=== PATIENT | female | born 1955 | race Caucasian/White ===

== ENCOUNTER 2017-10-24 16:48 | Observation (INO) | payer OTHER ==
[2017-10-24 17:40] LABS: #Basophils 0.1 thou/uL (0.0-0.2); #Eosinphils 0.2 thou/uL (0.0-0.7); #Lymphocytes 1.3 thou/uL (1.20-3.40); #Neutrophils 7.5 thou/uL (1.40-6.50); %Basophils 0.6 % (0.0-1.0); %Eosinophils 2.3 % (0.0-10.0); %Lymphocytes 12.9 % (21.0-51.0); %Monocytes 9.7 % (0.0-10.0); %Neutrophils 74.5 % (42.0-75.0); Hemoglobin 13.6 g/dL (12.0-16.0); Mean Corpuscular HGB CONC 33.5 g/dL (32.0-36.0); Mean Corpuscular Hemoglobin 29.4 pg (27.0-31.0); Mean Platelet Volume 6.6 fL (7.4-10.4); Platelet Count 294 thou/uL (130-400); RBC Distribution Width 11.9 % (11.5-14.5); Red Blood Cell (RBC) Count 4.61 mill/uL (4.20-5.40); White Blood Cell (WBC) Count 10.1 thou/uL (4.8-10.8)
[2017-10-24 18:02] LABS: ALT (SGPT) 23 U/L (8-55); AST (SGOT) 24 U/L (5-34); Albumin 4.5 g/dL (3.4-4.8); Alkaline Phosphatase 120 U/L (40-150); Anion Gap 16 mmol/L (10-20); BUN (Urea Nitrogen) 14 mg/dL (9.8-20.1); Bilirubin, Total 0.3 mg/dL (0.2-1.2); CK (CPK) 148 U/L (29-168); Calc. Creatinine Clearance 0 mL/min (70-130); Carbon Dioxide 24 mmol/L (23-31); Chloride 103 mmol/L (98-107); Estimated GFR-MDRD Greater than 90; Globulin 3.4 g/dL (2.4-3.5); Glucose 89 mg/dL (80-115); Lipase 8 U/L (8-78); Potassium 3.8 mmol/L (3.5-5.1); Protein, Total 7.9 g/dL (6.0-8.3); Sodium 139 mmol/L (136-145)
--- NOTE | 2017-10-24 18:05 | RAD ---
SINGLE VIEW OF THE CHEST 10/24/17 COMPARISON: 03/24/04 HISTORY: Intermittent chest pain for two weeks. FINDINGS: Single view of the chest shows a normal sized cardiomediastinal silhouette. There is no evidence of c onsolidation, mass, or pleural effusion. The bones are unremarkable. IMPRESSION: No evidence of acute cardiopulmonary disease. POS: [facility]
[2017-10-24 18:09] LABS: CKMB 3.4 ng/mL (0-6.6); Troponin I 0.012 ng/mL (< 0.028)
[2017-10-24 21:31] LABS: CKMB 2.7 ng/mL (0-6.6); Troponin I Less than 0.010 ng/mL (< 0.028)
[2017-10-24] MEDS ORDERED: Ondansetron HCl/PF 4 MG/2 ML Vial IVP PRN (23:03)
[2017-10-24] MEDS ORDERED: Acetaminophen 325 MG TAB PO PRN (23:03)
[2017-10-24] MEDS ORDERED: Ondansetron ODT 4 MG TAB SL PRN (23:03)
[2017-10-24 23:06] VITALS: BMI 23.1
[2017-10-25] MEDS ORDERED: Ondansetron ODT 4 MG TAB PO PRN (03:56)
[2017-10-25] MEDS ORDERED: HYDROcodone/Acetaminophen 5/325 mg Tablet PO PRN (03:56)
[2017-10-25 05:55] LABS: Troponin I Less than 0.010 ng/mL (< 0.028)
[2017-10-25] MEDS ORDERED: Nitroglycerin 0.4 MG TAB (25 Tab Bottle) PO PRN (08:10)
--- NOTE | 2017-10-25 08:13 | HP ---
CHIEF COMPLAINT: Chest pain. HISTORY OF PRESENT ILLNESS: The patient is a 62-year-old female who presents with 2 weeks of intermi ttent chest pain. The patient states that she was treated for URI 2 weeks ago by her PCP. She was h aving a lot of coughing at that time and states that she was having some chest pressure that started with this; however, she has since stopped coughing, but her chest pressure persists, this worried her and this is why she came to the ER. The patient denied any shortness of breath, any diaphoresis, fe vers or chills. The patient denied any pain that occurs with exertion. At this current time, she pinto s not had any prior cardiac issues and has no family history of such. PAST MEDICAL HISTORY: The patient is significant for anxiety, hyperlipidemia. PAST SURGICAL HISTORY: The patient has had partial hysterectomy. SOCIAL HISTORY: Social drinking. No tobacco use. REVIEW OF SYSTEMS: Please see HPI. Rest of 14-point review of systems is negative. HOME MEDICATIONS: The patient is on simvastatin, fluoxetine, omeprazole, loratadine, and baby aspiri n. LABORATORY AND X-RAY DATA: CBC: White count is 10.1, H and H 13 and 40 with a platelet of 294. Sod ium was 139, potassium 2.8, chloride 103, bicarbonate 24, BUN 14, creatinine 0.6 with a glucose of 89 . Lipase is 8, AST 24, ALT 23. The patient's chest x-ray was unremarkable. No pneumonia seen. PHYSICAL EXAMINATION: VITAL SIGNS: Blood pressure 150/69, pulse 74, respirations 18. The patient's T-max was 98.6. The p atient satting 95% on room air. GENERAL: The patient is awake, alert, and oriented x3, no acute distress. HEENT: Pupils round, reactive to light and accommodation. Extraocular muscles intact. TMs are can r. No throat. NECK: No JVD, no lymphadenopathy. HEART: Regular rate and rhythm. LUNGS: Clear to auscultation bilaterally. ABDOMEN: Positive bowel sounds. Soft, nontender, nondistended. EXTREMITIES: No clubbing, cyanosis or edema. NEUROLOGIC: Cranial nerves II-XII are grossly intact. PSYCHIATRIC: The patient is cooperative and answers questions appropriately. ASSESSMENT AND PLAN: 1. Chest pain. Continue with serial troponins. Most likely this is sequelae of her coughing from u rinary respiratory infection. Further testing outpatient versus inpatient as warranted by continue s ymptoms and troponin trend. 2. Hyperlipidemia. Continue simvastatin. 3. Gastroesophageal reflux disease. Continue omeprazole. 4. Anxiety. Continue fluoxetine. 5. Code status: The patient is FULL CODE.
[2017-10-25 08:17] VITALS: BP 118/60; TEMP 97.8
[2017-10-25] MEDS ORDERED: ALPRAZolam 0.25 MG TAB PO PRN (08:52)
[2017-10-25] MEDS ORDERED: Enoxaparin Sodium 30 MG/0.3 ML SYRINGE SC SCH (09:00)
[2017-10-25] MEDS ORDERED: FLUoxetine HCl 20 MG CAP PO SCH (09:00)
[2017-10-25] MEDS ORDERED: Aspirin 325 MG TAB PO SCH ×2 (09:00)
[2017-10-25] MEDS ORDERED: Aspirin 81 mg Enteric Coated Tablet PO SCH (09:00)
--- NOTE | 2017-10-25 14:18 | DIS ---
DATE OF DISCHARGE: 10/25/2017 DISCHARGE DISPOSITION: Home. FOLLOWUP: Follow up with primary care physician, Dr. Carrion in one week. The patient was seen and examined on the day of discharge. Denies any new complaints. Chest discomf ort has improved. DISCHARGE MEDICATIONS: Are same as admission medications. Aspirin 81 mg daily, calcium with vitamin D daily, fluoxetine 20 mg daily, loratadine 10 mg daily as needed, multivitamin 1 tablet daily, omep razole 40 mg daily, simvastatin 40 mg at bedtime. INPATIENT CONSULTANTS: None. BRIEF HOSPITAL COURSE: Patient is a 62-year-old female with hyperlipidemia, currently on 81 mg aspir in, presented to the emergency room with chest discomfort that resolved after aspirin in the emergenc y room. Please refer to the history and physical dated 10/24/2017 for further details. The patient was admitted to the hospital with the diagnosis of chest discomfort, rule out acute coron kosta syndrome. Her serial cardiac enzymes were normal. She underwent exercise Cardiolite stress test that was negative for reversible ischemia. She is chest pain free at this time and will be discharg ed. She will follow up with Dr. Carrion as outpatient. FINAL DIAGNOSES: 1. Chest discomfort, acute coronary syndrome ruled out. 2. Hyperlipidemia. Patient will continue statins. 3. Gastroesophageal reflux disease. We will continue proton pump inhibitors. 4. Anxiety. Patient will continue Prozac. 5. Negative Cardiolite stress test. Plan of care was discussed with the patient in detail. She stated understanding.
--- NOTE | 2017-10-25 15:09 | NM ---
CARDIAC SPECT WITH EF AND WALL MOTION: HISTORY: A 62-year-old female with chest pain and hyperlipidemia. This is an exercise study sestamibi study using Juancarlos protocol. The patient was injected with 28.5 mCi Technetium 99m sestamibi intravenously for stress images and t he patient was injected with 9.10 mCi Technetium 99m sestamibi intravenously for resting images. Multiple SPECT images in the short axis, vertical long axis, and horizontal long axis demonstrate no scan evidence for infarct or ischemia. TID 1.06. LHR 0.32. EDV 51 mL. EF is 80%. MYOCARDIAL PERFUSION WALL MOTION: Wall motion is normal. IMPRESSION: Normal cardiac SPECT with ejection fraction and wall motion. POS: [facility]
[2017-10-25] MEDS ORDERED: Atorvastatin Calcium 20 MG TAB PO SCH (21:00)
== END 2017-10-25 15:27 | disposition home or self-care (01) ==
LOC: ERS 16:48 → 2SW 21:04
PROVIDERS: ADMIT Hospitalist; ATTEND Hospitalist
DX: R07.89 Other chest pain (principal); E78.5 Hyperlipidemia, unspecified; K21.9 Gastro-esophageal reflux disease without esophagitis; F41.9 Anxiety disorder, unspecified; Z79.82 Long term (current) use of aspirin; Z79.899 Other long term (current) drug therapy; Z90.711 Acquired absence of uterus with remaining cervical stump
CPT/HCPCS: 36415; 71045; 78452; 80053; 82550; 82553; 83690; 84484; 85025; 93005; 93017; 94760; A9500; G0378; J1650

== ENCOUNTER 2017-10-29 16:37 | Outpatient (CLI) | payer OTHER | END 2017-10-29 16:38 | disposition home or self-care (01) | LOC: BICMAMMO 16:37 | PROVIDERS: ATTEND Family Medicine | DX: Z12.31 Encounter for screening mammogram for malignant neoplasm of breast (principal) | CPT/HCPCS: 77063; 77067 ==

== ENCOUNTER 2017-11-19 10:20 | Outpatient (CLI) | payer OTHER | END 2017-11-19 10:21 | disposition home or self-care (01) | LOC: BICMAMMO 10:20 | PROVIDERS: ATTEND Family Medicine | DX: Z78.0 Asymptomatic menopausal state (principal); Z00.00 Encounter for general adult medical examination without abnormal findings; M81.0 Age-related osteoporosis without current pathological fracture; M85.88 Other specified disorders of bone density and structure, other site | CPT/HCPCS: 77080 ==

== ENCOUNTER 2019-03-30 12:53 | Outpatient (CLI) | payer OTHER ==
--- NOTE | 2019-03-30 13:48 | ULT ---
RENAL ULTRASOUND: 03/30/19 PROVIDED CLINICAL HISTORY: Urinary tract infection. FINDINGS: Right kidney measures about 10.9 x 5.4 x 5.2 cm and demonstrates no evidence for hydronephrosis, sono graphically apparent calculus or mass. 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 The urinary bladder appears sonographically unremarkable. Prevoid bladder volume is 352 mL. Postvoid bladder volume is 36 mL. IMPRESSION: 1. No evidence for right sided hydronephrosis. 2. Minimal postvoid residual. POS: [facility]
== END 2019-03-30 12:54 | disposition home or self-care (01) ==
LOC: BICULT 12:53
PROVIDERS: ATTEND Family Medicine
DX: N39.0 Urinary tract infection, site not specified (principal)
CPT/HCPCS: 76770

== ENCOUNTER 2020-08-14 09:13 | Outpatient (CLI) | payer OTHER ==
--- NOTE | 2020-08-14 10:04 | MMO ---
Bilateral MAMMO Bilat Diag [facility]. CLINICAL HISTORY: Patient is 65 years old and is seen for diagnostic exam and lump or thickening in the left breast at 4 o'clock. The patient has no family history of breast cancer. The patient has no personal history of cancer. VIEWS: The views performed were: bilateral craniocaudal with tomosynthesis; bilateral mediolateral oblique with tomosynthesis; and bilateral mediolateral with tomosynthesis. FILMS COMPARED: The present examination has been compared to prior imaging studies performed at [facility] on 10/29/2017 and 08/14/2020, and at [facility] on 11/19/2012 and 11/22/2014. This study has been interpreted with the assistance of computer-aided detection. MAMMOGRAM FINDINGS: The breasts are heterogeneously dense, which could obscure a lesion on mammography. Finding 1: There are stable benign appearing calcifications seen in the left breast. Finding 2: No mammographic or ultrasound finding to account for the palpable findingat 3:00 LT. There are no suspicious masses, suspicious calcifications, or new areas of architectural distortion. IMPRESSION: THERE IS NO MAMMOGRAPHIC EVIDENCE OF MALIGNANCY. A ROUTINE FOLLOW-UP MAMMOGRAM IN 1 YEAR IS RECOMMENDED. THE RESULTS OF THIS EXAM WERE SENT TO THE PATIENT. ACR BI-RADS Category 2 - Benign finding MAMMOGRAPHY NOTE: 1. A negative mammogram report should not delay a biopsy if a dominant of clinically suspicious mass is present. 2. Approximately 10% to 15% of breast cancers are not detected by mammography. 3. Adenosis and dense breasts may obscure an underlying neoplasm. Reported by: LUDMILA VALDES MD Electonically Signed: [id number]
--- NOTE | 2020-08-14 10:09 | ULT ---
Exam: Left breast ultrasound: HISTORY: Patient presents with a palpable finding at approximately 3-4:00 left breast. No evidence for solid or cystic mass or other abnormal ultrasound finding this region. Diagnostic mammogram demonstrated no abnormal findings in this region. IMPRESSION: BI-RADS Category 2 benign findings. No ultrasound or mammographic finding demonstrated to account for the palpable finding. Continued annual follow-up mammograms.
== END 2020-08-14 09:14 | disposition home or self-care (01) ==
LOC: BICMAMMO 09:13
PROVIDERS: ATTEND Family Medicine
DX: N60.02 Solitary cyst of left breast (principal)
CPT/HCPCS: 77066; G0279

== ENCOUNTER 2021-11-21 15:29 | Outpatient (CLI) | payer OTHER | END 2021-11-21 15:30 | disposition home or self-care (01) | LOC: BICMAMMO 15:29 | PROVIDERS: ATTEND Family Medicine | DX: Z12.31 Encounter for screening mammogram for malignant neoplasm of breast (principal); Z13.820 Encounter for screening for osteoporosis; Z78.0 Asymptomatic menopausal state; M81.0 Age-related osteoporosis without current pathological fracture; M85.851 Other specified disorders of bone density and structure, right thigh; M85.852 Other specified disorders of bone density and structure, left thigh | CPT/HCPCS: 77063; 77067; 77080 ==